=== PATIENT | female | born 2000 | race Caucasian/White ===

== ENCOUNTER 2020-07-17 10:31 | Emergency (ER) | payer SELFPAY ==
[2020-07-17 10:38] VITALS: BP 119/78; PULSE 58; RESP 16; TEMP 36.4; O2SAT 99; BMI 26.6
--- NOTE | 2020-07-17 10:52 | PC.NURSE ---
As soon as patient clocked in she went to bathroom while another patient was being tended. Patient voided and did not collect urine.
--- NOTE | 2020-07-17 11:06 | W.ED.ABDPA2 ---
HPI - Abdominal Pain General: Chief Complaint: Abdominal Pain Stated Complaint: sharp pains on right side Time Seen by Provider: 07/17/20 11:03 History of Present Illness: HPI narrative: Patient complains about right flank pain since yesterday has been slightly nauseated. Denies any vaginal discharge dyspareunia denies vomiting says bowels and bladder working fine MD elicited complaint: abdominal pain and flank pain Onset (ago): hour(s) Pain Consistency: colicky Location: RUQ and R flank Severity: mild Quality: cramping Radiation: none Migration to: RUQ and R flank Exacerbating factors: nothing Relieving factors: nothing Associated Symptoms: Reports nausea; Denies chills and fever(s) Related Data: Date of Last Menstrual Period: 04/18/20 Review of Systems Const: Denies: fever(s), chills or body aches Eyes: Denies: change in vision or blurry vision ENMT: Denies: throat pain or nasal congestion Card: Denies: chest pain or dyspnea on exertion Resp: Denies: dyspnea, productive cough or non-productive cough GI: Reports: abdominal pain and nausea Musc: Denies: extremity pain Skin/Breast: Denies: rash Neuro: Denies: headache(s) Psych: Denies: anxiety or depression Favio/Lymph: Denies: easy bruising COUNTS INCLUDE 234 BEDS AT THE [facility] ED Female Reproductive History: Date of last menstrual period: 04/18/20 Physical Exam Const: COMMON NORMALS: no acute distress, average body habitus and patient oriented x3 HENMT: COMMON NORMALS: normocephalic HEAD & SCALP: normal to inspection and normocephalic FACE & SINUS: normal facial exam Eye: COMMON NORMALS: conjunctivae normal GENERAL EYE: appearance normal, both eyes and all related structures CONJUNCTIVA: Yes conjunctivae normal Neck/C-Spine: COMMON NORMALS: no JVD Chest: COMMONS NORMALS: normal inspection of the chest Resp: COMMON NORMALS: normal respiratory effort and clear to auscultation bilaterally AUSCULTATION: clear to auscultation bilaterally Cardio: COMMON NORMALS: no JVD, regular rate and regular rhythm RATE: regular rate RHYTHM: regular rhythm GI: COMMON NORMALS: Normal to inspection, nondistended, normoactive bowel sounds present PALPATION: Yes Tenderness to palpation present (GI) (Right flank area) Extremity: COMMON NORMALS: normal to inspection and full ROM Neuro: COMMON NORMALS: patient oriented x3 Course Vital Signs: Vital signs: Vital Signs Temperature 97.6 F 07/17/20 10:38 Pulse Rate 58 L 07/17/20 10:38 Respiratory Rate 16 07/17/20 10:38 Blood Pressure 119/78 07/17/20 10:38 Pulse Oximetry 100 07/17/20 11:31 MDM - Abdominal Pain MDM Narrative: Medical decision making narrative: Discussed need to follow-up Dr. Stevens's office get a repeat lipase next week or 2. If pain worsens or comes back can return here. Make sure to do a high-fiber diet. Gallbladder pancreas small bowel obstruction on differential. Differential Diagnosis: Differential diagnosis abdominal pain: Likely abdominal pain, constipation, pancreatitis and small bowel obstruction Lab Data: Labs: Lab Results 07/17/20 07/17/20 07/17/20 Range/Units 11:09 11:09 11:28 WBC 6.2 (4.0-10.0) 10^3/ uL RBC 4.76 (4.1-5.3) 10^6/u L Hgb 13.1 (11.5-15.3) g/dL Hct 42.0 (37.0-47.0) % MCV 88.2 (81-99) fL MCH 27.5 L (28.0-34.0) pg MCHC 31.2 (30.0-36.0) g/dL RDW 13.6 (12.1-15.1) % Plt Count 366 (130-400) 10^3/c mm MPV 9.9 (7.4-10.4) fL Neut % (Auto) 44.2 % Lymph % (Auto) 41.7 % [place] % (Auto) 10.9 % Eos % (Auto) 2.2 % Baso % (Auto) 0.8 % Neut # (Auto) 2.76 (1.8-7.7) 10^3/u L Lymph # (Auto) 2.6 (0.8-4.8) 10^3/u L [place] # (Auto) 0.7 (0.2-0.9) 10^3/u L Eos # (Auto) 0.1 (0.0-0.8) 10^3/u L Baso # (Auto) 0.1 (0.0-0.1) 10^3/u L Nucleated RBC % (a uto) 0 % Nucleated RBCs # 0.0 /100WBC Sodium (136-145) mmol/L Potassium (3.5-5.1) mmol/L Chloride (98-107) mmol/L Carbon Dioxide (22-29) mmol/L Anion Gap (5-19) BUN (6-20) mg/dL Creatinine (0.5-0.9) mg/dL GFR Calculation (90-130) mL/min Glucose (65-115) mg/dL Calculated Osmolal ity (285-295) mOsm/k g Calcium (8.5-10.5) mg/dL Total Bilirubin (0.15-1.2) mg/dL AST (0-32) U/L ALT (0-33) U/L Alkaline Phosphata se (35-105) IU/L Total Protein (6.6-8.7) g/dL Albumin (3.5-5.2) g/dL Globulin (1.3-4.6) g/dL Lipase (13-60) U/L HCG, Qual Negative (Negative) Urine Color Straw (Yellow) Urine Appearance Clear (CLEAR) Urine pH 6.0 (5-7) Ur Specific Gravit y 1.010 (1.005-1.030) Urine Protein Neg (Negative) Urine Glucose (UA) Norm (Normal) Urine Ketones Negative (Negative) Urine Blood Neg (Negative) Urine Nitrate Negative (Negative) Urine Bilirubin Neg (Negative) Urine Urobilinogen Norm (Negative) mg/dL Ur Leukocyte Debora ase Negative (Negative) 07/17/20 Range/Units 11:28 WBC (4.0-10.0) 10^3/ uL RBC (4.1-5.3) 10^6/u L Hgb (11.5-15.3) g/dL Hct (37.0-47.0) % MCV (81-99) fL MCH (28.0-34.0) pg MCHC (30.0-36.0) g/dL RDW (12.1-15.1) % Plt Count (130-400) 10^3/c mm MPV (7.4-10.4) fL Neut % (Auto) % Lymph % (Auto) % [place] % (Auto) % Eos % (Auto) % Baso % (Auto) % Neut # (Auto) (1.8-7.7) 10^3/u L Lymph # (Auto) (0.8-4.8) 10^3/u L [place] # (Auto) (0.2-0.9) 10^3/u L Eos # (Auto) (0.0-0.8) 10^3/u L Baso # (Auto) (0.0-0.1) 10^3/u L Nucleated RBC % (a uto) % Nucleated RBCs # /100WBC Sodium 135 L (136-145) mmol/L Potassium 4.0 (3.5-5.1) mmol/L Chloride 104 (98-107) mmol/L Carbon Dioxide 23 (22-29) mmol/L Anion Gap 12.0 (5-19) BUN 6 (6-20) mg/dL Creatinine 0.8 (0.5-0.9) mg/dL GFR Calculation 90.5 (90-130) mL/min Glucose 102 (65-115) mg/dL Calculated Osmolal ity 278 L (285-295) mOsm/k g Calcium 9.6 (8.5-10.5) mg/dL Total Bilirubin 0.3 (0.15-1.2) mg/dL AST 18 (0-32) U/L ALT 22 (0-33) U/L Alkaline Phosphata se 73 (35-105) IU/L Total Protein 7.5 (6.6-8.7) g/dL Albumin 3.9 (3.5-5.2) g/dL Globulin 3.6 (1.3-4.6) g/dL Lipase 101 H (13-60) U/L HCG, Qual (Negative) Urine Color (Yellow) Urine Appearance (CLEAR) Urine pH (5-7) Ur Specific Gravit y (1.005-1.030) Urine Protein (Negative) Urine Glucose (UA) (Normal) Urine Ketones (Negative) Urine Blood (Negative) Urine Nitrate (Negative) Urine Bilirubin (Negative) Urine Urobilinogen (Negative) mg/dL Ur Leukocyte Debora ase (Negative) Discharge Plan Discharge Patient Disposition: Home Clinical Impression: Abnormal serum lipase level Constipation Qualifiers: Constipation type: other constipation type Qualified Code(s): K59.09 - Other constipation Condition: Stable Prescriptions: No Action No Known Home Medications RF: 0 Discharge Orders: Discharge Order (Routine); Ordered 07/17/20 Ordered By: Jeremy Gaona Referrals: Omar Stevens, [Primary Care Provider] - Discharge Diet: As Directed Discharge Activity: Resume usual activity Patient Instructions: Constipation (ED), High Fiber Diet (ED) Activity Restrictions/Additional Instructions: High-fiber diet. Drink plenty of water. Can use [id number] magnesium citrate/laxative as needed. Follow-up your family medical provider if no significant provement. Your lipase level was slightly high and should be rechecked in 1 to 2 weeks with your family medical provider. Coding Level of Care Code ED Curriculum Director for [facility]wd Exam Comprehensive
--- NOTE | 2020-07-17 11:13 | XRR_ITS ---
PROCEDURE INFORMATION: Exam: XR Abdomen, 1 View Exam date and time: 07/17/2020 11:13 AM Age: 20 years old Clinical indication: Abdominal pain; Flank; Right; Additional info: Abd pain, right flank TECHNIQUE: Imaging protocol: XR of the abdomen. Views: Frontal supine view of the abdomen. 1 View. COMPARISON: No relevant prior studies available. FINDINGS: Gastrointestinal tract: No dilated gas-filled loops of bowel. Moderate amount of stool in the colon and rectum. Organs: No radiopaque renal or ureteral calculus. No radiopaque gallstone. Bones/joints: No acute osseous abnormality. XR/XR KUB portable [id number] IMPRESSION: No acute abnormality.
[2020-07-17 11:18] LABS: Add Urine Microscopic? NO
[2020-07-17 11:31] VITALS: O2SAT 100
[2020-07-17 11:32] LABS: Bilirubin Urine Neg (Negative); Blood Urine Neg (Negative); Glucose Urine UA Norm (Normal); HCG Qualitative Urine. Negative (Negative); Ketones Urine Negative (Negative); Leukocyte Esterase Urine Negative (Negative); Nitrate Urine Negative (Negative); Protein Urine Neg (Negative); Urine Appearance Clear (CLEAR); Urine Color Straw (Yellow); Urobilinogen Urine Norm (Negative)
[2020-07-17 11:33] LABS: Basophils # 0.1 10^3/uL (0.0-0.1); Basophils % 0.8 %; Eosinophils # 0.1 10^3/uL (0.0-0.8); Eosinophils % 2.2 %; Hemoglobin 13.1 g/dL (11.5-15.3); Lymphocytes # 2.6 10^3/uL (0.8-4.8); Lymphocytes % 41.7 %; Mean Corpuscular HGB Conc 31.2 g/dL (30.0-36.0); Mean Corpuscular Hemoglobin 27.5 pg (28.0-34.0); Mean Corpuscular Volume 88.2 fL (81-99); Mean Platelet Volume 9.9 fL (7.4-10.4); Monocytes # 0.7 10^3/uL (0.2-0.9); Monocytes % 10.9 %; Neutrophils # 2.76 10^3/uL (1.8-7.7); Neutrophils % 44.2 %; Nucleated Red Blood Cells % 0 %; Platelet Count 366 10^3/cmm (130-400); Red Blood Count 4.76 10^6/uL (4.1-5.3); Red Cell Distribution Width 13.6 % (12.1-15.1); White Blood Count 6.2 10^3/uL (4.0-10.0)
[2020-07-17 11:55] LABS: Alanine Aminotransferase 22 U/L (0-33); Albumin Level 3.9 g/dL (3.5-5.2); Alkaline Phosphatase 73 IU/L (35-105); Aspartate Amino Transferase 18 U/L (0-32); Blood Urea Nitrogen 6 mg/dL (6-20); Calcium 9.6 mg/dL (8.5-10.5); Carbon Dioxide 23 mmol/L (22-29); Chloride 104 mmol/L (98-107); Creatinine Clr Calc Pharmacy 105.1433; Globulin 3.6 g/dL (1.3-4.6); Glomerular Filtration Rate 90.5 mL/min (90-130); Glucose 102 mg/dL (65-115); Lipase 101 U/L (13-60); Osmolality Calculated 278 mOsm/kg (285-295); Sodium 135 mmol/L (136-145); Total Bilirubin 0.3 mg/dL (0.15-1.2); Total Protein 7.5 g/dL (6.6-8.7)
[2020-07-17 12:08] VITALS: BP 98/73; PULSE 54; O2SAT 100
== END 2020-07-17 12:08 | disposition home or self-care (01) ==
PROVIDERS: Emergency Provider Nurse Practitioner Family; PCP Family Medicine
DX: K59.09 Other constipation (principal); R74.8 Abnormal levels of other serum enzymes
CPT/HCPCS: 12345; 36415; 74018; 80053; 81003; 81025; 83690; 85025; 99282

== ENCOUNTER → 2021-05-28 13:01 | Outpatient (BNVA) | payer MEDICAID, SELFPAY | PROVIDERS: PCP Family Medicine; Visit Provider Obstetrics & Gynecology | DX: Z34.92 Encounter for supervision of normal pregnancy, unspecified, second trimester (principal); Z3A.19 19 weeks gestation of pregnancy | CPT/HCPCS: 76805 ==

== ENCOUNTER 2021-07-29 20:34 | Outpatient (CLI) | payer MEDICAID, SELFPAY ==
[2021-07-29 20:39] VITALS: BMI 29.0
[2021-07-29 20:47] VITALS: BP 109/68; PULSE 82
[2021-07-29 21:27] LABS: Add Urine Microscopic? YES; Bilirubin Urine Neg (Negative); Blood Urine Neg (Negative); Glucose Urine UA Norm (Normal); Ketones Urine Negative (Negative); Leukocyte Esterase Urine 1+ (Negative); Nitrate Urine Negative (Negative); Protein Urine Neg (Negative); Specific Gravity, Urine 1.005 (1.005-1.030); Urine Appearance Clear (CLEAR); Urine Color Yellow (Yellow); Urobilinogen Urine Norm (Negative); pH Urine 7 (5-7)
[2021-07-29 21:28] LABS: RBC Urine 0-4 /hpf (0-2)
[2021-07-29 21:29] LABS: Add Urine Culture? No; Bacteria Urine 2+ /hpf
[2021-07-29 21:45] VITALS: BP 109/68; PULSE 82; RESP 16
== END 2021-07-29 21:50 | disposition home or self-care (01) ==
LOC: OPOB 20:35 → OBGYN 20:36
PROVIDERS: PCP Family Medicine; Visit Provider Family Medicine
DX: O26.899 Other specified pregnancy related conditions, unspecified trimester (principal); Z3A.00 Weeks of gestation of pregnancy not specified; R10.9 Unspecified abdominal pain
CPT/HCPCS: 59025; 81001; 99211

== ENCOUNTER 2021-08-12 12:30 | Outpatient (CLI) | payer MEDICAID, SELFPAY ==
[2021-08-12] VITALS (9 sets, daily range): BP systolic 99–114; BP diastolic 56–71; PULSE 104–114; RESP 17; TEMP 37.5; BMI 32.1
[2021-08-12] MEDS: NIFEdipine 10 mg Capsule 30 MG PO (13:18)
[2021-08-12 13:41] LABS: Amphetamines Screen Urine Negative (Negative); Barbiturates Screen Urine Negative (Negative); Benzodiazepines Screen Urine Negative (Negative); Cocaine Screen Urine Negative (Negative); Opiate Screen Urine Negative (Negative); PCP Screen Urine Negative (Negative); THC Screen Urine Negative (Negative)
[2021-08-12 13:47] LABS: Add Urine Culture? No; Bacteria Urine TRACE /hpf; Bilirubin Urine Neg (Negative); Blood Urine Neg (Negative); Glucose Urine UA Norm (Normal); Ketones Urine Negative (Negative); Leukocyte Esterase Urine Negative (Negative); Mucus Urine TRACE /hpf; Nitrate Urine Negative (Negative); Protein Urine Neg (Negative); Sulfosalicylic Acid Urine Negative (Negative); Urine Appearance Clear (CLEAR); Urine Color Yellow (Yellow); Urobilinogen Urine Norm (Negative); WBC Urine 0-4 /hpf (0-5); pH Urine 8 (5-7)
== END 2021-08-12 15:05 | disposition home or self-care (01) ==
LOC: OPOB 12:34 → OBGYN 12:35
PROVIDERS: Absent Provider Obstetrics & Gynecology; PCP Family Medicine; Visit Provider Obstetrics & Gynecology
DX: O26.893 Other specified pregnancy related conditions, third trimester (principal); R10.9 Unspecified abdominal pain
CPT/HCPCS: 59025; 80306; 81001; 99211

== ENCOUNTER 2021-09-04 17:47 | Outpatient (CLI) | payer MEDICAID, SELFPAY ==
[2021-09-04] VITALS (8 sets, daily range): BP systolic 89–104; BP diastolic 54–66; PULSE 86–99; RESP 17; TEMP 36.6; BMI 33.7
[2021-09-04 19:11] LABS: Urine Appearance Cloudy (CLEAR); Urine Color Straw (Yellow)
[2021-09-04 19:12] LABS: Bilirubin Urine Neg (Negative); Blood Urine Neg (Negative); Glucose Urine UA Norm (Normal); Ketones Urine Negative (Negative); Leukocyte Esterase Urine 2+ (Negative); Nitrate Urine Negative (Negative); Protein Urine Neg (Negative); Specific Gravity, Urine 1.005 (1.005-1.030); Sulfosalicylic Acid Urine Negative (Negative); Urobilinogen Urine Norm (Negative); pH Urine 8 (5-7)
[2021-09-04 19:13] LABS: Bacteria Urine 2+ /hpf; Mucus Urine 1+ /hpf; Squamous Epithelial Cell Urine 15-25 /hpf (0-5)
[2021-09-04 19:14] LABS: Add Urine Culture? No; RBC Urine 0-4 /hpf (0-2); WBC Urine 25-40 /hpf (0-5)
[2021-09-04] MEDS: nitrofurantoin SR (BID) 100 mg Capsule PO (19:48)
== END 2021-09-04 19:51 | disposition home or self-care (01) ==
LOC: OPOB 17:57 → OBGYN 17:59
PROVIDERS: PCP Family Medicine; Visit Provider Family Medicine
DX: O99.891 Other specified diseases and conditions complicating pregnancy (principal); R10.2 Pelvic and perineal pain
CPT/HCPCS: 59025; 81001; 99211

== ENCOUNTER 2021-09-07 12:45 | Outpatient (CLI) | payer MEDICAID, SELFPAY ==
[2021-09-07] VITALS (7 sets, daily range): BP systolic 85–116; BP diastolic 56–77; PULSE 83–101; RESP 16; BMI 32.8
[2021-09-07 13:35] LABS: Actim Prom Negative
--- NOTE | 2021-09-07 13:50 | US_ITS ---
WS: [id number] ULTRASOUND OB LIMITED TECHNIQUE: Limited ultrasound examination of the fetus. CLINICAL INFORMATION: Vaginal Discharge COMPARISON: May 28, 2021 FINDINGS: Cervix is long and closed measuring 4.1 cm Single interuterine gestation. presentation is vertex Placental location is anterior. Placenta grade: 1 heart rate 141 BPM. Normal ASHWINI 12.0 cm greater than 5th percentile and less than median. Biophysical profile 8 out of 8. breathin movement: 2 tone: 2 Amniotic fluid: 2 IMPRESSION 1. Normal biophysical profile 8 out of 8 2. Normal ASHWINI 12.0 cm greater than 5th percentile and less than median. 3. Anterior placenta with vertex position. 4. Cervix is long and closed measuring 4.1 cm
== END 2021-09-07 14:59 | disposition home or self-care (01) ==
LOC: OPOB 12:58 → OBGYN 12:59
PROVIDERS: PCP Family Medicine; Visit Provider Obstetrics & Gynecology
DX: O99.891 Other specified diseases and conditions complicating pregnancy (principal); N89.8 Other specified noninflammatory disorders of vagina
CPT/HCPCS: 59025; 76819; 84112; 99211

== ENCOUNTER 2021-09-17 12:45 | Outpatient (CLI) | payer MEDICAID, SELFPAY ==
[2021-09-17 13:00] VITALS: RESP 18; TEMP 36.4
--- NOTE | 2021-09-17 13:00 | PC.NURSE ---
Patients states she rates her pain a 4 on a pain scale of 0-10 every once in a while. Sometimes is constant and others in comes and goes. nurse libanaccs patient at 0 on a pain scale of 0-10. Patient states that she sometimes has a twinge in her side off and on.
[2021-09-17 13:04] VITALS: BP 106/64; PULSE 96
[2021-09-17 13:26] VITALS: BP 115/55; PULSE 101
[2021-09-17 13:42] VITALS: BP 115/62; PULSE 108
[2021-09-17 14:05] VITALS: BP 115/62; PULSE 108; RESP 18; TEMP 36.4
[2021-09-17 14:38] VITALS: BMI 33.5
== END 2021-09-17 14:05 | disposition home or self-care (01) ==
LOC: OPOB 12:47 → OBGYN 13:02 → OPOB 13:02
PROVIDERS: PCP Family Medicine; Visit Provider Obstetrics & Gynecology
DX: O99.891 Other specified diseases and conditions complicating pregnancy (principal); N89.8 Other specified noninflammatory disorders of vagina
CPT/HCPCS: 59025; 99211

== ENCOUNTER 2021-09-18 15:47 | Outpatient (CLI) | payer MEDICAID, SELFPAY ==
[2021-09-18 16:00] VITALS: BMI 33.5
[2021-09-18 16:06] VITALS: BP 107/70; PULSE 100
[2021-09-18 16:12] VITALS: RESP 17
[2021-09-18 16:41] LABS: Actim Prom Negative
== END 2021-09-18 17:05 | disposition home or self-care (01) ==
LOC: OPOB 16:00 → OBGYN 16:03
PROVIDERS: PCP Family Medicine; Visit Provider Family Medicine
DX: O99.891 Other specified diseases and conditions complicating pregnancy (principal); N89.8 Other specified noninflammatory disorders of vagina
CPT/HCPCS: 59025; 84112; 87081; 99211

== ENCOUNTER 2021-09-23 09:54 | Emergency (ER) | payer MEDICAID, SELFPAY ==
[2021-09-23 10:10] VITALS: BP 112/72; PULSE 84; RESP 16; TEMP 36.7; O2SAT 100; BMI 32.5
--- NOTE | 2021-09-23 11:38 | ED_ITS ---
HPI - General Adult General: Chief complaint: OB/Uterine Contractions Stated complaint: VAGINAL SWELLING,PAIN Time Seen by Provider: 09/23/21 11:05 History of Present Illness: HPI narrative: Patient is a 21-year-old female currently at [address] Álvarez presenting to the emergency room with sudden persistent contractions since 11 AM. Patient was last seen in OB clinic 4 days ago. Patient report small pelvic fluid discharge. Denies any vaginal bleeding, significant pain, nausea vomiting fever or chills. Onset: 1 day ago Duration:1 day Location:home Severity:moderate Review of Systems Narrative: Constitutional: No fever, no chills. HEENT: No vision changes CV: No chest pain, no palpitations PULM: no cough, no dyspnea. GI: No abdominal pain, no N/V/D. : No dysuria, +pelvic pain/contractions MSKEL: No muscle pain SKIN: No new rashes, no lesions. NEURO: No headache, no focal weakness. HEME: No visible bruises PSYCH: Normal mood PFSH ED PFSH: Family History (Updated 09/24/21 @ 13:24 by Ludivina Hoang RN) Grandmother Diabetes maternal Stroke maternal Thyroid condition paternal Mother Hypertension Stroke Heart disease Family/Other Breast cancer paternal, onset 65 Denies family history of Colon cancer Ovarian cancer Clotting disorder Hyperlipidemia Anesthesia complication Bleeding disorder Uterine cancer Female Reproductive History: Date of last menstrual period: 04/18/20 Physical Exam Narrative: EXAM NARRATIVE: Head: Atraumatic Eyes: PERRL, conjunctiva without injection ENT: Mucous membrane moist NECK: Supple, ROM intact LUNGS: LCTAB, no crackles/rhonchi CV: RRR ABDOMEN: Soft, nontender in all quadrants EXTREMITY: Normal ROM SKIN: No rash or erythema NEURO: Awake and alert, no focal motor deficits PSYCH: Normal mood and affect : Exam deferred after discussing case with OB Course Vital Signs: Vital signs: Vital Signs Temperature 98.1 F 09/23/21 11:47 Pulse Rate 84 09/23/21 11:47 Respiratory Rate 16 09/23/21 11:47 Blood Pressure 112/72 09/23/21 11:47 Pulse Oximetry 100 09/23/21 11:47 MDM - General Adult MDM Narrative: Medical decision making narrative: 21-year-old female presenting to the emergency room with concerns of new pelvic pain since 11 AM yesterday. On exam, patient is hemodynamically stable in no acute distress. Given proximity to delivery date, Case was urgently discussed with OB provider Hernan who agrees with transfer to OB floor for evaluation and monitoring. Discharge Plan Discharge Patient Disposition: Home Clinical Impression: Pelvic pain, Third trimester fetus Condition: Stable Prescriptions: No Action pren vit comb.1-iron [id number] 1 tab PO DAILY RF: 0 Discharge Orders: Discharge ED (Routine); Ordered 09/23/21 Ordered By: Laila Spivey Referrals: Robert Álvarez MD [Primary Care Provider] - Discharge Diet: Advance as tolerated Discharge Activity: Resume usual activity Patient Instructions: Pelvic Pain (ED) Coding Level of Care Code ED Water Resource Manager for Yulisa Nelson
[2021-09-23 11:47] VITALS: BP 112/72; PULSE 84; RESP 16; TEMP 36.7; O2SAT 100
== END 2021-09-23 11:48 | disposition home or self-care (01) ==
PROVIDERS: Emergency Provider Emergency Medicine; PCP Obstetrics & Gynecology
DX: O26.893 Other specified pregnancy related conditions, third trimester (principal); R10.2 Pelvic and perineal pain; Z3A.37 37 weeks gestation of pregnancy
CPT/HCPCS: 99283

== ENCOUNTER 2021-09-23 11:43 | Outpatient (CLI) | payer MEDICAID, SELFPAY ==
[2021-09-23 11:43] VITALS: BMI 33.7
[2021-09-23 12:05] VITALS: BP 96/59; PULSE 82; RESP 18; TEMP 36.2
[2021-09-23 12:22] VITALS: BP 109/56; PULSE 88
--- NOTE | 2021-09-23 12:23 | PM.ACPR ---
Procedure/Consent Procedure Narrative: NONSTRESS TEST: Place of test: [facility] Indication: 21-year-old 1 para 0 at 36 weeks and 5 days, swelling Date and time of test: 09/23/2021, 12:15 PM Baseline: 135 Variability: Moderate variability Accelerations: Accelerations present Decelerations: No decelerations Tocometry: Irregular contractions INTERPRETATION: NST reactive, continue kick counts
[2021-09-23 12:35] VITALS: BP 97/56; PULSE 78
--- NOTE | 2021-09-23 12:47 | PC.NURSE ---
1205 PT PLACED ON MONITORS AND WAS NOT IN CENTRICITY. FHT'S 135 BASELINE AT THAT TIME. 1210 VE DONE.
[2021-09-23 12:51] VITALS: BP 100/58; PULSE 83
[2021-09-23 13:21] VITALS: BP 101/61; PULSE 92
[2021-09-23 13:50] VITALS: BP 101/61; PULSE 92; RESP 18; TEMP 36.2
--- NOTE | 2021-09-23 14:07 | PC.NURSE ---
1155 PATIENT HERE WITH COMPLAINT OF VAGINAL AND LIPS SWELLING SHE STATED THAT DR. MITCHELL GAVE HER SOME CREAM FOR A YEAST INFECTION BACK ON August (QUESTIONED HER SEVERAL TIMES ON THIS DATE AND SHE STATED EACH TIME THAT IT WAS THE THE ) PATIENT STATED THAT SHE DID NOT USE IT BECAUSE SHE WAS SUPPOSED TO USE AT IT NIGHT BEFORE SHE WENT TO BED AND SHE NEVER COULD USE IT BECAUSE BABY WAS TO ACTIVE AT NIGHT FOR ME TO USE IT TOLD HER THAT JUST BECAUSE BABY IS ACTIVE DOES NOT MEAN THAT SHE COULD NOT USE IT. DR. MITCHELL JUST MEANT THAT YOU HAD TO LAY DOWN AFTER USING IT SO CREAM STAYED IN. PT STATED THAT SHE USED IT FRIDAY NIGHT FOR THE 1ST TIME AND SAID SHE WAS ALITTLE SWOLLEN THE NEXT MORNING AND USED IT AGAIN LAST NIGHT AND THE SWELLING GOT WORSE. ASKED HER IF SHE WAS HAVING ITCHING OR BURNING PRIOR TO USING IT AND SHE SAID NO, SHE HAD NO ANSWER TO WHY SHE EVEN USED IT. TALKED TO HER AND HER MOM ABOUT NOT USING IT AGAIN AND TOLD THEM I THOUGHT SHE WAS PERHAPS HAVING AN ALLERGIC REACTION TO THE CREAM. TOLD HER THAT WE'D WATCH HER AND THAT I WOULD CALL DR. ANDERSEN AND WE'D GO FROM THERE. 1210 ICE FILLED DIAPER PLACED ON PERINEUM, INSTRUCTED THEM BOTH ON USING ICE EVEN AFTER DISCHARGE. 1220 TALKED WITH PATIENT AND HER MOM ABOUT HOME CARE INSTRUCTIONS FROM DR. KNOWLES AND BOTH VOICE UNDERSTANDING. 1340 AGAIN WENT OVER HOME CARE INSTRUCTIONS WITH HER AND HER MOM BOTH VERBALLY AND WRITTEN. 1345 PATIENT DISCHARGED HOME WITH INSTRUCTIONS, FRESH ICE DIAPER AND BLUE PAD GIVEN. AGAIN WENT OVER CARE. TOLD AGAIN TO KEEP APPOINTMENT WITH DR. RUANO TOMORROW. WRITTEN INSTRUCTIONS WITH HER MOM.
== END 2021-09-23 13:45 | disposition home or self-care (01) ==
LOC: OPOB 11:52 → OBGYN 12:10
PROVIDERS: PCP Obstetrics & Gynecology; Visit Provider Obstetrics & Gynecology
DX: O99.891 Other specified diseases and conditions complicating pregnancy (principal); R22.9 Localized swelling, mass and lump, unspecified; Z3A.36 36 weeks gestation of pregnancy
CPT/HCPCS: 59025; 99211

== ENCOUNTER 2021-09-28 08:35 | Outpatient (CLI) | payer MEDICAID, SELFPAY ==
[2021-09-28 08:58] VITALS: BP 118/71; PULSE 81; TEMP 36.3
[2021-09-28 09:13] VITALS: BP 108/71; PULSE 90
[2021-09-28 09:17] VITALS: BMI 34.9
[2021-09-28 09:21] VITALS: RESP 16
[2021-09-28 09:28] VITALS: BP 101/66; PULSE 88
[2021-09-28 09:28] LABS: Actim Prom Negative
== END 2021-09-28 09:45 | disposition home or self-care (01) ==
LOC: OPOB 08:44 → OBGYN 08:49
PROVIDERS: PCP Obstetrics & Gynecology; Visit Provider Obstetrics & Gynecology
DX: O99.891 Other specified diseases and conditions complicating pregnancy (principal); N89.8 Other specified noninflammatory disorders of vagina; R10.9 Unspecified abdominal pain
CPT/HCPCS: 59025; 84112; 99211

== ENCOUNTER 2021-10-01 15:05 | Inpatient (IN) | payer MEDICAID, SELFPAY ==
[2021-10-01] VITALS (74 sets, daily range): BP systolic 81–115; BP diastolic 47–77; PULSE 67–120; RESP 18; TEMP 36.2–36.8; O2SAT 88–100; BMI 34.7
[2021-10-01 17:17] LABS: Basophils # 0.1 10^3/uL (0.0-0.1); Basophils % 0.6 %; Eosinophils # 0.1 10^3/uL (0.0-0.8); Eosinophils % 0.7 %; Hematocrit 30.1 % (37.0-47.0); Hemoglobin 9.1 g/dL (11.5-15.3); Lymphocytes # 2.5 10^3/uL (0.8-4.8); Lymphocytes % 24.8 %; Mean Corpuscular HGB Conc 30.2 g/dL (30.0-36.0); Mean Corpuscular Hemoglobin 23.8 pg (28.0-34.0); Mean Corpuscular Volume 78.8 fl (81-99); Mean Platelet Volume 11.7 fL (7.4-10.4); Monocytes # 0.8 10^3/uL (0.2-0.9); Monocytes % 7.6 %; Neutrophils # 6.54 10^3/uL (1.8-7.7); Neutrophils % 65.6 %; Nucleated Red Blood Cells % 0 %; Platelet Count 252 10^3/cmm (130-400); Red Blood Count 3.82 10^6/uL (4.1-5.3); Red Cell Distribution Width 14.6 % (12.1-15.1)
[2021-10-01] MEDS: lactated ringers 1,000 ML 999 ML IV (17:21)
--- NOTE | 2021-10-01 17:50 | P.ANESASSM_ITS ---
Pre-Anesthetic Assessment Pre-Anesthetic Assessment: Height/Weight: Height 1.52 m Weight 80.739 kg Temp Pulse Resp BP 98.3 F 77 18 99/59 10/01/21 14:17 10/01/21 17:35 10/01/21 14:17 10/01/21 17:35 Preop Diagnosis: IUP Proposed Procedure: MARISELA Was Beta Gavin taken within 24 hours: N/A Was Clonidine taken within 24 hours: N/A Social: Social History: No alcohol and No tobacco Exam: Pre-Anes Outpt Exam: alert and oriented x 3 Airway: Submandibular: WNL Cervical ROM: WNL MP: 2 Dentition: Full History/ROS: No significant complaints GI: GI: GERD (controlled) Anesthetic Plan: ASA status: 2 Anesthesia: Anesthesia Evaluation and Regional (specify below) (epidural) Risk of > 500 ml blood loss (7ml/kg in children): No Meds/Allergies Current Medications: Current Medications Generic Name Dose Route Start Last Admin Trade Name Freq PRN Reason Stop Dose Admin Lactated Ringer's 1,000 mls @ 999 m ls/hr 10/01/21 16:58 10/01/21 17:21 Lactated Ringers IV 999 mls/hr .Q1H1M PRN Administration See label comment s PFSH Anesthesia PFSH: Family History (Updated 09/24/21 @ 13:24 by Ludivina Hoang RN) Grandmother Diabetes maternal Stroke maternal Thyroid condition paternal Mother Hypertension Stroke Heart disease Family/Other Breast cancer paternal, onset 65 Denies family history of Colon cancer Ovarian cancer Clotting disorder Hyperlipidemia Anesthesia complication Bleeding disorder Uterine cancer Female Reproductive History: Date of last menstrual period: 04/18/20 : 1 Data Anesthesia CBC & Chem 7: 10/01/21 16:50 Other Labs: Laboratory Results - last 48 hr 10/01/21 16:50 WBC 10.0 RBC 3.82 L Hgb 9.1 L Hct 30.1 L MCV 78.8 L MCH 23.8 L MCHC 30.2 RDW 14.6 Plt Count 252 MPV 11.7 H Neut % (Auto) 65.6 Lymph % (Auto) 24.8 [place] % (Auto) 7.6 Eos % (Auto) 0.7 Baso % (Auto) 0.6 Neut # (Auto) 6.54 Lymph # (Auto) 2.5 [place] # (Auto) 0.8 Eos # (Auto) 0.1 Baso # (Auto) 0.1 Nucleated RBC % (auto) 0 Nucleated RBCs # 0.0 Cardiac Studies: No Data to Display
[2021-10-01] MEDS: dextrose 5%-lactated ringers 1,000 ML 125 ML IV (18:29)
--- NOTE | 2021-10-01 18:29 | ANES.PROC ---
Anesthesia Procedures Procedure/Date: 10/01/21 epidural Epidural: Time Out Performed: Yes Consents Signed: Procedure Consent Consent: from patient, risks and benefits reviewed and patient agrees to proceed Lumbar Level: L3-L4 Epidural position: sitting Epidural procedure: sterile prep of area, 1% lidocaine to numb the area, 18 g needle, neg for paresthesia, test dose given, 1.5% xylocaine 1:200k epi, placed PCEA, no systemic response, sterile dressing applied, L.U.D. no apparent complications and 0.2% Ropiavacaine @ mls/hr (11) Additional Comments: WILMAR at 6 TAped at 12 at skin
--- NOTE | 2021-10-01 18:32 | P.HPUD_ITS ---
Labor & Delivery H&P Update Date of Procedure: October 01, 2021 Date H&P Performed: 09/24/21 H&P update information: I have reviewed H&P completed within last 30 days, I have examined patient prior to procedure, Changes to prior documentation as noted here and H&P is in [facility] EMR on date indicated Changes to previous documentation: cx 6 [facility] Admission Diagnosis: Preop diagnosis: IUP
--- NOTE | 2021-10-01 18:32 | PM.OPHPUD ---
Labor & Delivery H&P Update Date of Procedure: October 01, 2021 Date H&P Performed: 09/24/21 H&P update information: I have reviewed H&P completed within last 30 days, I have examined patient prior to procedure, Changes to prior documentation as noted here and H&P is in [facility] EMR on date indicated Changes to previous documentation: cx 6 [facility] Admission Diagnosis: Preop diagnosis: IUP
[2021-10-01] MEDS: oxytocin 30 UNIT/500 ML BAG IV (19:55)
[2021-10-02] VITALS (93 sets, daily range): BP systolic 103–174; BP diastolic 53–124; PULSE 74–124; RESP 14–18; TEMP 36.7–37.1; O2SAT 86–100
[2021-10-02] MEDS: oxytocin 30 UNIT/500 ML BAG 600 UNIT IV (01:22)
--- NOTE | 2021-10-02 01:48 | P.PCNOB_ITS ---
Delivery Note: Date of delivery: October 02, 2021 - PRE-DELIVERY DIAGNOSIS: 21-year-old 1 para 0 at 38 weeks and 0 days Active labor GBS negative, Covid unknown Anemia on iron POST-DELIVERY DIAGNOSIS: Vaginal delivery on 10/02/2021 PROCEDURE: Vaginal delivery on 10/02/2021 ANESTHESIA: Epidural anesthesia, local anesthesia with 2% lidocaine DELIVERING PHYSICIAN: Liseth Cerrato FACOG PRE-DELIVERY COURSE: Ms. Anglin is a 21-year-old 1 para 0 at 38 weeks and 0 days who had presented to see Dr. Álvarez for regular visit and was noted to be 3 to 4 cm 60% and -2 station and reported having Mecosta Freeman contractions. As she lives an hour away from the hospital she was sent up to labor and delivery for evaluation. She had care with Dr. North and had just [address] Álvarez. Her history was significant for anemia for which she was on iron. She denied any other problems. On admission to labor and delivery she was observed for 2 hours and during that time made cervical change to 5 to 6 cm and was admitted in active labor she was having contractions every 2 to 4 minutes but was pretty comfortable overall. She desired an epidural even though she was not in pain. Initial blood work showed that she was anemic with a hemoglobin of 9.1. GBS was negative. She was observed and made further cervical change to 7 to 8 cm at 5:10 PM. Artificial rupture of membranes was performed at this time and an epidural was placed per her request. She was comfortable. After the epidural she was about 8 cm at 6 PM and by 8 PM had made no further cervical change with contractions having spaced out. She was started on Pitocin titrated to a maximum of 5 mIU and with this had regular contractions and made cervical change and was fully dilated at 10 PM. She was very numb and was unable to push well on a practice portion she was allowed to labor down. She labor down for about an hour and a half and station went from -1 to +1. Throughout this time tracing was category 1. She was then set up in lithotomy position ready to push. DELIVERY NOTE: She was set up in lithotomy position and was pushing effectively. She was noted to be +3 station and continued pushing well. The perineum was noted to be tight and a right mediolateral episiotomy was cut after infiltrating the area with 2% lidocaine. The head delivered in GUSTAVO position, no nuchal cord was noted. The shoulders and rest of the body followed with her next push. The baby's mouth and nose were suctioned and the baby was placed on the mother's belly. Once cord pulsations stopped the cord was clamped and cut. The placenta delivered spontaneously intact with membranes and was discarded. The fundus was noted to be firm and well contracted. The vagina and cervix were inspected and no cervical or sulcal lacerations were noted. The perineum was intact except for the right medial lateral episiotomy which was repaired with 2-0 Vicryl in a continuous interlocking fashion. She also had bilateral labial tears and the right one was repaired as it was bleeding. The left one was shallow and hemostatic and was not repaired. Baby Alex born at 1:18 AM on October 02, 2021 with 7/8, weighing 8 pounds 0 ounces, 20.5 inches long. Placenta was delivered spontaneously intact with membranes at 1:22 AM. Cotyledons were intact , centrally inserted umbilical cord with 3 vessels noted. Estimated blood loss 300 mL. Complications-none, both baby and mother were left to recover in a stable condition This documentation was created by [employer] portable power tool repairer software (known for inherent portable power tool repairer error). Every effort was made to assure accuracy of portable power tool repairer. Any obvious errors or omissions should be clarified with the author of the document. History History History 1 Term 0 Miscarriages/Ectopic 0 0 Living Children 0 Coding Level of Care Code Acute Sales And Marketing Coordinator for [facility] Leslie
[2021-10-02] MEDS: HYDROcodone-acetaminophen 5-325 mg Tablet PO ×2 (04:18→10:31)
--- NOTE | 2021-10-02 08:06 | ANE.PACU2 ---
Inpatient post-anesthesia follow up: Airway intact: Yes Vital signs: Temperature 98.4 F Pulse Rate 91 Respiratory Rate 18 Blood Pressure 137/63 Pulse Oximetry 96 Oxygen Delivery Me thod Room Air Oxygen Flow Rate Fraction of Inspir ed Oxygen Hydration adequate: Yes Nausea and vomiting: No Pain level: 1 Mental status: Baseline Additional Comments: EMR Review
[2021-10-02] MEDS: prenatal vitamin Capsule 1 CAP PO (09:26)
[2021-10-02] MEDS: docusate sodium 100 mg Capsule PO (09:26)
[2021-10-02] MEDS: ibuprofen 800 mg tablet PO ×2 (09:26→20:23)
[2021-10-02 14:13] LABS: Coronavirus Test Green County Not Detected
[2021-10-02 20:35] LABS: Hematocrit 25.9 % (37.0-47.0); Hemoglobin 7.9 g/dL (11.5-15.3); Mean Corpuscular HGB Conc 30.5 g/dL (30.0-36.0); Mean Corpuscular Hemoglobin 24.1 pg (28.0-34.0); Mean Platelet Volume 11.6 fL (7.4-10.4); Platelet Count 212 10^3/cmm (130-400); Red Blood Count 3.28 10^6/uL (4.1-5.3); Red Cell Distribution Width 14.6 % (12.1-15.1); White Blood Count 13.3 10^3/uL (4.0-10.0)
[2021-10-03] MEDS: HYDROcodone-acetaminophen 5-325 mg Tablet PO ×2 (02:59→11:17)
[2021-10-03 04:04] VITALS: BP 105/70; PULSE 82; RESP 16; O2SAT 97
--- NOTE | 2021-10-03 07:12 | PM.OBGYDC ---
Discharge Providers APPLICATIONS ENGINEERING MANAGER Date of Admission: 10/01/21 15:05 Date of Discharge: 10/03/21 Attending Provider at Admission: Liseth Kerr MD Attending Provider at Discharge: Liseth Kerr MD Primary Care Provider: PRE-DELIVERY DIAGNOSIS: 21-year-old 1 para 0 at 38 weeks and 0 days Active labor GBS negative, Covid unknown Anemia on iron POST-DELIVERY DIAGNOSIS: Vaginal delivery on 10/02/2021 PROCEDURE: Vaginal delivery on 10/02/2021 ANESTHESIA: Epidural anesthesia, local anesthesia with 2% lidocaine DELIVERING PHYSICIAN: Liseth Cerrato FACOG PRE-DELIVERY COURSE: Ms. Anglin is a 21-year-old 1 para 0 at 38 weeks and 0 days who had presented to see Dr. Álvarez for regular visit and was noted to be 3 to 4 cm 60% and -2 station and reported having [place] contractions. As she lives an hour away from the hospital she was sent up to labor and delivery for evaluation. She had care with Dr. North and had just [address] Álvarez. Her history was significant for anemia for which she was on iron. She denied any other problems. On admission to labor and delivery she was observed for 2 hours and during that time made cervical change to 5 to 6 cm and was admitted in active labor she was having contractions every 2 to 4 minutes but was pretty comfortable overall. She desired an epidural even though she was not in pain. Initial blood work showed that she was anemic with a hemoglobin of 9.1. GBS was negative. She was observed and made further cervical change to 7 to 8 cm at 5:10 PM. Artificial rupture of membranes was performed at this time and an epidural was placed per her request. She was comfortable. After the epidural she was about 8 cm at 6 PM and by 8 PM had made no further cervical change with contractions having spaced out. She was started on Pitocin titrated to a maximum of 5 mIU and with this had regular contractions and made cervical change and was fully dilated at 10 PM. She was very numb and was unable to push well on a practice portion she was allowed to labor down. She labor down for about an hour and a half and station went from -1 to +1. Throughout this time tracing was category 1. She was then set up in lithotomy position ready to push. DELIVERY NOTE: She was set up in lithotomy position and was pushing effectively. She was noted to be +3 station and continued pushing well. The perineum was noted to be tight and a right mediolateral episiotomy was cut after infiltrating the area with 2% lidocaine. The head delivered in GUSTAVO position, no nuchal cord was noted. The shoulders and rest of the body followed with her next push. The baby's mouth and nose were suctioned and the baby was placed on the mother's belly. Once cord pulsations stopped the cord was clamped and cut. The placenta delivered spontaneously intact with membranes and was discarded. The fundus was noted to be firm and well contracted. The vagina and cervix were inspected and no cervical or sulcal lacerations were noted. The perineum was intact except for the right medial lateral episiotomy which was repaired with 2-0 Vicryl in a continuous interlocking fashion. She also had bilateral labial tears and the right one was repaired as it was bleeding. The left one was shallow and hemostatic and was not repaired. Baby Alex born at 1:18 AM on October 02, 2021 with 7/8, weighing 8 pounds 0 ounces, 20.5 inches long. Placenta was delivered spontaneously intact with membranes at 1:22 AM. Cotyledons were intact , centrally inserted umbilical cord with 3 vessels noted. Estimated blood loss 300 mL. Complications-none, both baby and mother were left to recover in a stable condition HOSPITAL COURSE: She underwent an uncomplicated vaginal delivery on October 02, 2021. She did well on day 0 and was ambulating well, tolerating regular diet, voiding freely, passing flatus. She was breast-feeding and formula feeding without difficulty and bonding well with her daughter. Pain was well-controlled with by mouth pain medication. She denied nausea, vomiting, fever, chills, shortness of breath, leg pain. She had moderate vaginal bleeding. On day # 1 she continued to do well with stable vital signs and stable hemoglobin at 7.9. Orthostatics was performed and was negative. She was discharged home on day 1 in a stable condition, as she desired early discharge. Warning signs for endometritis, mastitis, DVT/PE were reviewed with her. Post delivery activity restrictions were also reviewed with her at all her questions were answered to her satisfaction. She is undecided as to what she wants to use for contraception and will follow up with her primary obstetrical care provider to discuss this further EXAM AT DISCHARGE: Gen.: No acute distress Heart: S1-S2 heard, regular rate and rhythm Lungs: Clear to auscultation bilaterally Abdomen: Soft, fundus firm below umbilicus, Legs: No calf tenderness, trace bilateral pitting pedal edema. CONDITION AT DISCHARGE: Stable This documentation was created by [employer] professor software (known for inherent [employer] professor error). Every effort was made to assure accuracy of [employer] professor. Any obvious errors or omissions should be clarified with the author of the document. Reason for Visit Reason for Visit: Abdominal pain Information Peripartum Data: Delivery Method: Vaginal Physical Exam Urinary Catheter Management^: Swenson: Cath Placed During This Visit: yes, but has since been removed by the nurse Reason for Continuing Indwelling Catheter: Required Immobilization for Trauma or Surgery or Anesthesia Urinary Catheter Date of Insertion: 10/01/21 Urinary Catheter Time of Insertion: 18:50 Date Urinary Catheter Removed: 10/02/21 Time Urinary Catheter Discontinued: 01:14 History History History 1 Term 0 Miscarriages/Ectopic 0 0 Living Children 0 Discharge Data Data Completed and Pending: Labs from last 24 hours 10/02/21 10/01/21 20:29 18:40 WBC 13.3 H RBC 3.28 L Hgb 7.9 L Hct 25.9 L MCV 79.0 L MCH 24.1 L MCHC 30.5 RDW 14.6 Plt Count 212 MPV 11.6 H Nasal/Oral COVID-1 9 PCR Not detected Vitals: Last Vital Signs Temp 98.1 F 10/02/21 20:00 Pulse 82 10/03/21 04:04 Resp 16 10/03/21 04:04 BP 105/70 10/03/21 04:04 Pulse Ox 97 10/03/21 04:04 Discharge Plan Discharge Patient Disposition: Home Condition: Stable Prescriptions: New hydrocodone-acetaminophen 5-325 mg tablet 1 tab PO Q6H Qty: 10 RF: 0 docusate sodium 100 mg Capsule 100 mg PO BID PRN (Reason: constipation) Qty: 30 RF: 0 ferrous sulfate 325 mg (65 mg iron) tablet 325 mg PO BID Qty: 30 RF: 0 ibuprofen 800 mg tablet 800 mg PO Q8H Qty: 30 RF: 0 Continued pren vit comb.1-iron cb-FA-DSS 1 tab PO DAILY RF: 0 Discharge Orders: Discharge Order (Routine); Ordered 10/03/21 Ordered By: Liseth Kerr Referrals: Cammy North DO [Staff Physician] - (6-week ) Discharge Diet: Regular Discharge Activity: Limit activity as instructed Patient Instructions: Opioid Safety Activity Restrictions/Additional Instructions: Pelvic rest for 6 weeks, no heavy lifting for 6 weeks, follow-up with Dr. Norht for 6-week visit Discharge Attestations APPLICATIONS ENGINEERING MANAGER Time Spent in Discharge Care*: greater than 30 min Coding Level of Care Code Acute It Quality Analyst for Yulisa Nelson
[2021-10-03 08:35] VITALS: BP 105/70; BP 112/74; BP 112/79; PULSE 108; PULSE 83; PULSE 98; RESP 16; RESP 17; TEMP 36.7
[2021-10-03 10:15] VITALS: BP 112/74; PULSE 83; RESP 16; TEMP 36.7
[2021-10-03] MEDS: docusate sodium 100 mg Capsule PO ×2 (11:08→18:29)
[2021-10-03] MEDS: ibuprofen 800 mg tablet PO ×2 (11:08→18:29)
[2021-10-03] MEDS: prenatal vitamin Capsule 1 CAP PO (11:08)
[2021-10-03 18:34] VITALS: BP 117/77; PULSE 92; RESP 16; TEMP 36.7
[2021-10-03 18:35] VITALS: BP 117/77; PULSE 92; RESP 16; TEMP 36.7
== END 2021-10-03 18:36 | disposition home or self-care (01) | DRG 807 ==
PROVIDERS: Admitting Provider Obstetrics & Gynecology; PCP Obstetrics & Gynecology; Visit Provider Obstetrics & Gynecology
DX: O99.02 Anemia complicating childbirth (principal); Z37.0 Single live birth; D64.9 Anemia, unspecified; Z3A.38 38 weeks gestation of pregnancy; O70.0 First degree perineal laceration during delivery
CPT/HCPCS: 36415; 51702; 59025; 59409; 80307; 84315; 85025; 85027; 87635; 90471; 90686; 98960; 99211; J2795

== ENCOUNTER 2021-10-27 11:23 | Emergency (ER) | payer MEDICAID, SELFPAY ==
[2021-10-27 11:33] VITALS: BP 103/70; PULSE 85; RESP 16; TEMP 36.8; O2SAT 98
--- NOTE | 2021-10-27 11:33 | ED_ITS ---
HPI - Extremity Injury (Lower) General: Chief Complaint: Wound/Laceration Stated Complaint: L KNEE INJURY Time Seen by Provider: 10/27/21 11:30 Source: patient Mode of arrival: wheelchair Limitations: no limitations History of Present Illness: HPI Narrative: Patient is a 21-year-old female who presents to ED today with a complaint of a right knee injury. Patient tells me she had been drinking last night ( Jaquelin) and states she woke up this morning and on her way to the bathroom accidentally struck her right knee onto a mirror sustaining two lacerations. Reports knee pain has increased since injury. Tetanus UTD. DANIELSON complaint: knee injury Onset (ago): hour(s) Injury: Right: knee Type of Injury: blunt and laceration Place: home Severity: moderate Relieving factors: immobilization Exacerbating factors: weight bearing, movement and palpation Context: direct blow Associated symptoms: Reports no associated symptoms Other symptoms: none Review of Systems Musc: Reports: joint pain (R knee) Skin/Breast: Reports: other (lacerations to R knee) Neuro: Denies: numbness in extremities, weakness in extremities or sensory changes [facility], [facility] PFSH: Family History (Updated 09/24/21 @ 13:24 by Ludivina Honag RN) Grandmother Diabetes maternal Stroke maternal Thyroid condition paternal Mother Hypertension Stroke Heart disease Family/Other Breast cancer paternal, onset 65 Denies family history of Colon cancer Ovarian cancer Clotting disorder Hyperlipidemia Anesthesia complication Bleeding disorder Uterine cancer Female Reproductive History: Date of last menstrual period: 04/18/20 Physical Exam Const: COMMON NORMALS: no acute distress, patient oriented x3, no limitations and alert GENERAL APPEARANCE: cooperative Extremity: GENERAL: Yes normal exam except as noted RIGHT LOWER EXTREMITY: Yes knee joint (two superficial lacerations anterior R knee; full ROM; no bony deformity) Right knee: Yes inspection (no obvious effusion noted) and Yes neurovascular exam (normal) Neuro: COMMON NORMALS: patient oriented x3, moves all extremities, no focal motor deficits and no sensory deficits noted SENSORIUM/ORIENTATION: Yes alert Skin: NARRATIVE SKIN EXAM: see extremity for pertinent skin findings Procedures Laceration Laceration 1: Site: lower extremity Side (If applicable): right Size (cm): 1.25 Description: linear Depth: simple, single layer Local Anesthetic: lidocaine 1% Amount of anesthesia used (mL): 2.0 Pre-repair: wound explored (small fragment of glass removed) and irrigated extensively Skin layer closed with: nylon Size (cm): 5-0 Number of sutures: 4 Technique: simple, interrupted Laceration 2: Site: lower extremity Side (If applicable): right Size (cm): 1.0 Description: linear Depth: simple, single layer Local Anesthetic: lidocaine 1% Amount of anesthesia used (mL): 1.0 Pre-repair: wound explored and irrigated extensively Skin layer closed with: nylon Size (cm): 5-0 Number of sutures: 3 Technique: running Course Vital Signs: Vital signs: Vital Signs Temperature 98.2 F 10/27/21 11:33 Pulse Rate 85 10/27/21 11:33 Respiratory Rate 16 10/27/21 11:33 Blood Pressure 103/70 10/27/21 11:33 Pulse Oximetry 98 10/27/21 11:33 MDM - Extremity Injury (Lower) MDM Narrative: Medical decision making narrative: Wounds were copiously irrigated by myself. Small glass fragment (seen on XR) was removed without difficulty. Wounds were repaired as documented. Instructions given regarding wound care at home and signs of infection that should prompt re-evaluation. Imaging Data^: XR R knee: My impression: no fxs/dislocations; small fb noted Discharge Plan Discharge Patient Disposition: Home Clinical Impression: Laceration of knee, right Qualifiers: Encounter type: initial encounter Qualified Code(s): S81.011A - Laceration without foreign body, right knee, initial encounter Condition: Stable Prescriptions: No Action pren vit comb.1-iron cb-FA-DSS 1 tab PO DAILY RF: 0 ibuprofen 800 mg tablet 800 mg PO Q8H Qty: 30 RF: 0 ferrous sulfate 325 mg (65 mg iron) tablet 325 mg PO BID Qty: 30 RF: 0 docusate sodium 100 mg Capsule 100 mg PO BID PRN (Reason: constipation) Qty: 30 RF: 0 hydrocodone-acetaminophen 5-325 mg tablet 1 tab PO Q6H Qty: 10 RF: 0 Discharge Orders: Discharge ED (Routine); Ordered 10/27/21 Ordered By: Regina Diehl Patient Instructions: Laceration (ED) Activity Restrictions/Additional Instructions: Keep wound/laceration clean with warm soap and water twice daily. Monitor for signs of infection such as redness, swelling, increased pain, or drainage. Please seek medical re-evaluation if these occur. If you received sutures today these will need to be removed (unless you were told by the provider that they are absorbable). The provider should have discussed with you the length of time until removal-7 DAYS. You may return to the emergency department for this service. If your wound was closed with Steri-Strips or glue/adhesive these will fall off within the next week or so. Coding Level of Care Code ED Inorganic Chemical Technician for Yulisa Fwrod Exam Expanded Problem Focused
--- NOTE | 2021-10-27 11:36 | XRR_ITS ---
PROCEDURE INFORMATION: Exam: XR Right Knee Exam date and time: 10/27/2021 11:36 AM Age: 21 years old Clinical indication: Injury or trauma; Fall; Wound; Patella or knee; Right; Without foreign body; Additional info: Laceration/injury TECHNIQUE: Imaging protocol: XR Right knee. Views: 3 views. COMPARISON: No relevant prior studies available. FINDINGS: Bones/joints: Joint effusion is present with fluid in the suprapatellar bursa. There is a cluster of radiopacities measuring about 6 mm in diameter projecting in the soft tissues use at the anterior inferior margin of the patella. These could represent foreign bodies in the soft tissues at the site of laceration. Soft tissues: See Bones/joints finding. XR/XR knee RT 3V* [id number] IMPRESSION: 1. There is a cluster measuring 6 mm in diameter of radiopacities projecting in the superficial soft tissues at the anterior inferior margin of the patella. These could represent foreign bodies in the laceration. Correlation with the site of injury is advised. 2. Joint effusion. No bony abnormality.
== END 2021-10-27 12:50 | disposition home or self-care (01) ==
PROVIDERS: Emergency Provider Physician Assistant
DX: S81.021A Laceration with foreign body, right knee, initial encounter (principal)
CPT/HCPCS: 12001; 73562; 99282

== ENCOUNTER → 2025-01-10 13:03 | Outpatient (BNVA) | payer OTHER, SELFPAY | PROVIDERS: Visit Provider Family Medicine | DX: R05.9 Cough, unspecified (principal); N92.6 Irregular menstruation, unspecified | CPT/HCPCS: 81025; 87400 ==